=== PATIENT | male | born 1965 | race Caucasian/White ===

== ENCOUNTER 2017-11-10 12:26 | Emergency (ER) | payer MEDICARE ==
[2017-11-10] MEDS ORDERED: HYDROcodone/ACETAMIN 5-325 MG* 1 TAB PO ONE (13:14)
[2017-11-10 13:51] LABS: ABS Basophils 0.1 10^3/ul (0-0.2); ABS Eosinophils 0.2 10^3/ul (0-0.6); ABS Monocytes 0.6 10^3/ul (0-0.8); ABS Neutrophils 11.1 10^3/ul (1.5-7.7); ABS Nucleated RBC 0 10^3/ul; Eosinophil % 1.7 % (0-6); Hematocrit 49 % (42-52); Hemoglobin 16.7 g/dl (14.0-18.0); Lymphocyte % 14.1 % (25-47); Mean Corpuscular HGB Conc 34 g/dl (31-36); Mean Corpuscular Hemoglobin 32 pg (27-31); Mean Corpuscular Volume 94 fL (80-94); Mean Platelet Volume 7.5 um3 (7.4-10.4); Nucleated Red Blood Cells % 0; Platelet Count 274 10^3/ul (150-450); Red Blood Count 5.21 10^6/ul (4.0-5.4); Red Cell Distribution Width 14 % (10.5-15)
[2017-11-10 13:59] LABS: INR 0.94 (0.77-1.02)
[2017-11-10 14:10] LABS: EGFR Non-African American 79.1 (>60)
[2017-11-10] MEDS ORDERED: Morphine VIAL* 4 MG/ML VIAL (1 ml vial) IV ONE (14:17)
[2017-11-10] MEDS ORDERED: Ondansetron INJ* 2 MG/ML VIAL IV ONE (14:17)
[2017-11-10] MEDS ORDERED: Iohexol 350* (CONTRAST) 500 ML MDV IV ONE (14:43)
--- NOTE | 2017-11-10 14:56 | ED ---
Lower Extremity - HPI Summary HPI Summary: Pt here w/ Rt hallux pain and discoloration x 1 month. Progressively worsening. Other toes have been discolored as well and progressively worsening (not as bad as hallux). Denies known injury to the area. Toes feel cold. When he gets pain, he applies ice which helps, has not applied heat. Denies fever, chills, streaking, swelling, N/V/D. He has not been to a PCP in 20 years - unsure if he has any baseline medical issues. - History of Current Complaint Chief Complaint: EDExtremityLower Stated Complaint: RT TOE INJURY Time Seen by Provider: 11/10/17 12:49 Hx Obtained From: Patient, Family/Degreaser - Pain Intensity: 0 - Allergies/Home Medications Allergies/Adverse Reactions: Allergies Allergy/AdvReac Type Severity Reaction Status Date / Time No Known Allergies Allergy Verified 11/10/17 12:29 Home Medications: Home Medications NK [No Home Medications Reported] 11/10/17 [History Confirmed 11/10/17] PMH/Surg Hx/FS Hx/Imm Hx Previously Healthy: Yes - as far as he knows Endocrine/Hematology History: Denies: Hx Anticoagulant Therapy, Hx Blood Disorders, Hx Diabetes, Hx Thyroid Disease, Hx Unexplained Bleeding, Hx Coagulopothy Cardiovascular History: Denies: Hx Hypertension History: Denies: Hx Renal Disease Infectious Disease History: No Infectious Disease History: Denies: Traveled Outside the [place] in Last 30 Days - Family History Known Family History: Positive: None - Social History Lives: With Family - Alcohol Use: Occasionally Hx Substance Use: Yes Substance Use Type: Reports: Marijuana Hx Tobacco Use: Yes Smoking Status (MU): Current Every Day Smoker Review of Systems Constitutional: Negative Negative: Fever, Chills, Fatigue Eyes: Negative ENT: Negative Cardiovascular: Negative Respiratory: Negative Gastrointestinal: Negative Genitourinary: Negative Positive: Other - toes hurt - worse w/ touch Skin: Other - blue toes Rt foot Psychological: Normal All Other Systems Reviewed And Are Negative: Yes Physical Exam Triage Information Reviewed: Yes Vital Signs On Initial Exam: Initial Vitals Temp Pulse Resp BP Pulse Ox 97.5 F 104 16 167/92 98 11/10/17 12:27 11/10/17 12:27 11/10/17 12:27 11/10/17 12:27 11/10/17 12:27 Vital Signs Reviewed: Yes Appearance: Positive: Well-Appearing, Pain Distress - mild to moderate Skin: Positive: Dry, Cold, Tender - Rt toes, especially hallux (entire toe - tips of other toes) are dark blue, cold to touch, streaking darker blue over plantar surface (possible necrosis) - tissue blanches with palpation, blue refill, pain worse w/ heat Head/Face: Positive: Normal Head/Face Inspection Eyes: Positive: EOMI ENT: Positive: Hearing grossly normal Respiratory/Lung Sounds: Positive: Other - breathing easily Cardiovascular: Positive: Other - DP's are non-palpable B/L. Negative: Leg Edema Left, Leg Edema Right Abdomen Description: Positive: Nontender, No Organomegaly, Soft Bowel Sounds: Positive: Present Musculoskeletal: Positive: Normal, Strength/ROM Intact Neurological: Positive: Normal, Sensory/Motor Intact, Alert, Oriented to Person Place, Time, CN Intact II-III Psychiatric: Positive: Normal Diagnostics - Vital Signs Vital Signs Temp Pulse Resp BP Pulse Ox 11/10/17 14:44 16 11/10/17 12:27 97.5 F 104 16 167/92 98 - Laboratory Lab Results: Lab Results 11/10/17 11/10/17 11/10/17 Range/Units 13:37 13:37 13:37 WBC 14.0 H (3.5-10.8) 10^3/ul RBC 5.21 (4.0-5.4) 10^6/ul Hgb 16.7 (14.0-18.0) g/dl Hct 49 (42-52) % MCV 94 (80-94) fL MCH 32 H (27-31) pg MCHC 34 (31-36) g/dl RDW 14 (10.5-15) % Plt Count 274 (150-450) 10^3/ul MPV 7.5 (7.4-10.4) um3 Neut % (Auto) 79.2 (38-83) % Lymph % (Auto) 14.1 L (25-47) % Woodward % (Auto) 4.6 (0-7) % Eos % (Auto) 1.7 (0-6) % Baso % (Auto) 0.4 (0-2) % Absolute Neuts (auto) 11.1 H (1.5-7.7) 10^3/ul Absolute Lymphs (auto) 2.0 (1.0-4.8) 10^3/ul Absolute Monos (auto) 0.6 (0-0.8) 10^3/ul Absolute Eos (auto) 0.2 (0-0.6) 10^3/ul Absolute Basos (auto) 0.1 (0-0.2) 10^3/ul Absolute Nucleated RBC 0 10^3/ul Nucleated RBC % 0 INR (Anticoag Therapy) 0.94 (0.77-1.02) APTT 32.1 (26.0-36.3) seconds Sodium 137 L (139-145) mmol/L Potassium 4.0 (3.5-5.0) mmol/L Chloride 104 (101-111) mmol/L Carbon Dioxide 23 (22-32) mmol/L Anion Gap 10 (2-11) mmol/L BUN 10 (6-24) mg/dL Creatinine 0.99 (0.67-1.17) mg/dL Est GFR ( Amer) 101.7 (>60) Est GFR (Non-Af Amer) 79.1 (>60) BUN/Creatinine Ratio 10.1 (8-20) Glucose 99 (70-100) mg/dL Lactic Acid (0.5-2.0) mmol/L Calcium 9.3 (8.6-10.3) mg/dL Total Bilirubin 0.70 (0.2-1.0) mg/dL AST 16 (13-39) U/L ALT 16 (7-52) U/L Alkaline Phosphatase 67 (34-104) U/L C-Reactive Protein 14.02 H (< 5.00) mg/L Total Protein 7.4 (6.4-8.9) g/dL Albumin 4.4 (3.2-5.2) g/dL Globulin 3.0 (2-4) g/dL Albumin/Globulin Ratio 1.5 (1-3) //18 Range/Units 13:37 WBC (3.5-10.8) 10^3/ul RBC (4.0-5.4) 10^6/ul Hgb (14.0-18.0) g/dl Hct (42-52) % MCV (80-94) fL MCH (27-31) pg MCHC (31-36) g/dl RDW (10.5-15) % Plt Count (150-450) 10^3/ul MPV (7.4-10.4) um3 Neut % (Auto) (38-83) % Lymph % (Auto) (25-47) % Woodward % (Auto) (0-7) % Eos % (Auto) (0-6) % Baso % (Auto) (0-2) % Absolute Neuts (auto) (1.5-7.7) 10^3/ul Absolute Lymphs (auto) (1.0-4.8) 10^3/ul Absolute Monos (auto) (0-0.8) 10^3/ul Absolute Eos (auto) (0-0.6) 10^3/ul Absolute Basos (auto) (0-0.2) 10^3/ul Absolute Nucleated RBC 10^3/ul Nucleated RBC % INR (Anticoag Therapy) (0.77-1.02) APTT (26.0-36.3) seconds Sodium (139-145) mmol/L Potassium (3.5-5.0) mmol/L Chloride (101-111) mmol/L Carbon Dioxide (22-32) mmol/L Anion Gap (2-11) mmol/L BUN (6-24) mg/dL Creatinine (0.67-1.17) mg/dL Est GFR ( Amer) (>60) Est GFR (Non-Af Amer) (>60) BUN/Creatinine Ratio (8-20) Glucose (70-100) mg/dL Lactic Acid 1.1 (0.5-2.0) mmol/L Calcium (8.6-10.3) mg/dL Total Bilirubin (0.2-1.0) mg/dL AST (13-39) U/L ALT (7-52) U/L Alkaline Phosphatase (34-104) U/L C-Reactive Protein (< 5.00) mg/L Total Protein (6.4-8.9) g/dL Albumin (3.2-5.2) g/dL Globulin (2-4) g/dL Albumin/Globulin Ratio (1-3) Result Diagrams: 11/10/17 13:37 11/10/17 13:37 Lab Statement: Any lab studies that have been ordered have been reviewed, and results considered in the medical decision making process. Lower Extremity Course/Dx - Course Course Of Treatment: Discussed w/ Politi - since this is not an acute presentation will check CTA w/ runoff vs. immediate transfer. Spoke w/ Dr. Cook who reveal pt has a "peripheral thrombus in the distal ab aorta with complete occlusion of the AA. There is reconstitution of the left external iliac artery just distal to the left common iliac artery bifurcation. There is reconstitution right common femoral artery. There appears to be three-vessel runoff in the calves bilaterally.". Discussed with Dr. Trevino, vascular specialist at [facility]. He does not believe patient needs to come by ambulance to their ED tonight however he would be happy to see him as soon as possible tomorrow morning in his office. Discussed this option with patient who agrees to follow up with plan however he is reluctant to engage in any intervention immediately as he "needs to take care of his " and "take care of personal things you don't know about at home". He reports although he has family, no one can take of his like he does. and son state they will find alternative plans to help with his care should he need to be away from home. Pt became tearful many times throughout this discussion - is tearful as well. Provided pt, and son w/ Dr. Trevino's office # [phone]. They are recommended to call first thing tomorrow morning to schedule appt tomorrow in [place]. In the meantime will initiate aspirin 325 mg daily. Also discussed patient's risk of clotting with smoking/possibly worsening of condition and encouraged cessation/alternatives (ie. nicotine replacement) however he is not interested at this time. He was given a short course of pain medication here tonight to get him through until tomorrow. Reviewed that if symptoms worsen, return to ED or go straight to [facility] for intervention. Pt voices understanding diagnosis, treatment plan and risks of avoiding care including but not limited to movement of clot, creating occlusion with further tissue (suspect he already has some in hallux at this time and he is aware of this as well). - Diagnoses Provider Diagnoses: Abdominal aorta thrombosis Discharge - Sign-Out/Discharge Documenting (check all that apply): Discharge/Admit/Transfer - Discharge Plan Condition: Fair Disposition: HOME Referrals: [facility] [place] PHYSICIAN REFERRAL [Outside] Uriel AVALOS,Sohail Faulkner [Medical Doctor] - Additional Instructions: You have a clot in your abdominal aorta, the large vessel supplying your legs with oxygen rich blood. This blockage is causing of the tissue in your toes of your right foot which is why they are turning a dark blue. It is important that you avoid cold temperatures to the skin here, start an aspirin 325 mg daily and follow up with the vascular surgeon tomorrow for best outcome of care at this point in your condition. The vascular surgeon who will be waiting for your call and managing your care is Dr. Trevino at [facility] in [facility] - his office phone number is [phone]. Please call first thing in the morning to schedule an appointment for tomorrow. Other activities that may worsen this condition are smoking. Anything you can do to cut back or quit this habit will help to prevent worsening of your condition. This may be done through nicotine replacement products such as Nicorette gum, NicoDerm nicotine patch, or Nicotrol inhaler. You may also discuss medications that can aid in cessation with your primary care provider such as Wellbutrin or Chantix. Additionally, you may seek counseling to change this behavior in an effort to help your overall health but specifically your current condition of clot in your arterial vessel. Another resource is 7-039-TCWYDZE. *If you feel worse in the meantime, you may return to the emergency department or drive straight to [facility] in [facility] to seek immediate intervention. - Billing Disposition and Condition Condition: FAIR Disposition: HOME
--- NOTE | 2017-11-10 16:19 | RAD ---
Indication: Poor perfusion to the right toes. Contrast: Administered 125.1 ml of OMNIPAQUE 350 mg/ml CTA of the abdominal aorta and lower extremities was performed. Coronal and sagittal reconstructed images were obtained. The proximal abdominal aorta including the celiac axis, superior mesenteric artery and both renal arteries are patent. There is peripheral peripheral thrombus just distal to the renal artery origins. There is occlusion of the distal abdominal aorta and common iliac arteries. There is reconstitution of the left external iliac artery just distal to the bifurcation of the common iliac artery on the left. The right common iliac and external iliac arteries are occluded with reconstitution of the right common femoral artery on the right. The femoral artery, popliteal artery and the calf vessels demonstrates small 3 vessel runoff bilaterally. The liver is normal in size. No focal lesions or intrahepatic ductal dilatation is noted. The spleen is normal in size. No adrenal lesions are noted. The kidneys demonstrate no hydronephrosis. No retroperitoneal adenopathy is noted. No dilated loops of bowel are noted. Small bowel demonstrates no abnormal dilatation. The urinary bladder, prostate and seminal vesicles are unremarkable. IMPRESSION: There is peripheral thrombus in the distal abdominal aorta with complete occlusion of the abdominal aorta. There is reconstitution of the left external iliac artery just distal to the left common iliac artery bifurcation. There is reconstitution right common femoral artery. There appears to be three-vessel runoff in the calves bilaterally. Findings discussed with Abiola Wylie at 1616 hours.
[2017-11-10] MEDS ORDERED: Aspirin EC TAB* 325 MG PO ONE (18:04)
[2017-11-10] MEDS ORDERED: Aspirin 81 mg CHEW TAB* 81 MG TAB.CHEW PO ONE (18:09)
[2017-11-10] MEDS ORDERED: Aspirin 81 mg CHEW TAB* 81 MG TAB.CHEW ONE (18:11)
[2017-11-10 18:18] VITALS: BP 150/87
== END 2017-11-10 18:17 | disposition home or self-care (01) ==
LOC: ED 12:26
DX: I74.09 Other arterial embolism and thrombosis of abdominal aorta (principal); F17.210 Nicotine dependence, cigarettes, uncomplicated
CPT/HCPCS: 36415; 75635; 80053; 83605; 85025; 85610; 85730; 86140; 96374; 96375; 99282; A9270-GY; J2270; J2405; Q9967